=== PATIENT | male | born 1990 | race Caucasian/White ===

== ENCOUNTER 2018-08-09 21:51 | Emergency (ER) | payer BC, OTHER ==
[2018-08-09 21:57] VITALS: BP 116/76; PULSE 75; TEMP 98.3; BMI 26.5
[2018-08-09] MEDS ORDERED: SODIUM CHLORIDE 1,000 ML IV ONE ×2 (22:13→23:10)
[2018-08-09] MEDS ORDERED: ONDANSETRON 4 MG/2 ML VIAL IVPB ONE (22:13)
--- NOTE | 2018-08-09 22:14 | PDOC ---
History of Present Illness - General Chief Complaint: Pain, Acute Stated Complaint: NAUSEA/VOMITING/ABD PAIN Time Seen by Provider: 08/09/18 21:56 History Source: Patient Exam Limitations: No Limitations - History of Present Illness Initial Comments: 08/09/18 22:48 This is a 28-year-old male who comes in complaining of epigastric pain and multiple episodes of nausea and vomiting. Patient denies any fevers, chills, diarrhea. Patient said symptoms began about an hour and a half ago. Patient is otherwise healthy. Allergies: None Past Medical History: none Social history: Lives with family. No smoking. No alcohol. No illicit drugs. Surgical history: None General: No fevers or chills, no weakness, no weight loss HEENT: No change in vision. No sore throat,. No ear pain CardioVascular: no chest discomfort. No shortness of breath Respiratory:No cough, or wheezing. Gastrointestinal: + nausea, +vomiting, no diarrhea or constipation, No rectal bleeding Genitourinary: No dysuria, hematuria, or frequency Musculoskeletal: No joint or muscle pain or swelling Neurologic: No headache, vertigo, dizziness or loss of consciousness Psychiatric: nor depression Skin: No rashes or easy bruising Endocrine: no increased thirst or abnormal weight change Allergic: no skin or latex allergy All other systems reviewed and normal Exam: General: Well-nourished well-developed individual, no acute distress HEENT: Throat: Normal, tonsils normal, no erythema or exudate Neck: Supple, no meningeal signs, no lymphadenopathy Eyes::Pupils equal reactive and round, extraocular motion intact Chest: Nontender to palpation Cardiac: S1-S2 normal, regular rate and rhythm, no murmurs rubs or gallops Respiratory: Lungs clear to auscultation bilateral Abdomen: Soft, nondistended, normal bowel sounds, there is some mild tenderness on palpation in the epigastric area. Extremities: Warm, dry, no cyanosis, clubbing, or edema Skin: No rashes Neuro: Alert and oriented x3, CN II - XII intact, nonfocal exam with normal strength, normal sensation, normal reflexes, normal gait, Psych: Normal mood and affect Assessment and plan: This is a 28-year-old male who comes in complaining of nausea and vomiting multiple episodes over the last hour and a half. Patient also complaining of epigastric pain. Patient does not appear dehydrated at this point however given his amount of vomiting and nausea I will hydrated with IV fluids and give him some Zofran and reassess. 23:11 Reevaluation post 1 L fluid patient feels much better at this point however still does not feel the need to urinate so we'll continue IV hydration. Patient has no further vomiting in the ED Past History - Past Medical History Allergies/Adverse Reactions: Allergies Allergy/AdvReac Type Severity Reaction Status Date / Time No Known Allergies Allergy Unverified 08/09/18 21:53 Home Medications: Ambulatory Orders NK [No Known Home Medication] 08/09/18 COPD: No - Suicide/Smoking/Psychosocial Hx Smoking History: Never smoked *Physical Exam - Vital Signs Last Vital Signs Temp Pulse Resp BP Pulse Ox 98.3 F 75 16 116/76 100 08/09/18 21:53 08/09/18 21:53 08/09/18 21:53 08/09/18 21:53 08/09/18 21:53 Moderate Sedation - Procedure Monitoring Vital Signs: Procedure Monitoring Vital Signs Temperature 98.3 F 08/09/18 21:53 Pulse Rate 75 08/09/18 21:53 Respiratory Rate 16 08/09/18 21:53 Blood Pressure 116/76 08/09/18 21:53 O2 Sat by Pulse Oximetry (%) 100 08/09/18 21:53 *DC/Admit/Observation/Transfer Diagnosis at time of Disposition: Nausea and vomiting Qualifiers: Vomiting type: unspecified Vomiting Intractability: non-intractable Qualified Code(s): R11.2 - Nausea with vomiting, unspecified - Discharge Dispostion Disposition: HOME Condition at time of disposition: Stable Decision to Admit order: No - Referrals - Patient Instructions Additional Instructions: Clear liquids only for the next 6 hours.. If you vomit again U can take Zofran 1 tablet as often as every 6 hours if needed. I am sending a prescription to the pharmacy for Zofran After that if you have had no further vomiting you may have bananas, rice, applesauce, or toast. If no further vomiting for another 8 hours you may have regular food. If you vomit again then nothing to eat or drink for 2 hours. then start back with the clear liquids. Return to the emergency department immediately with ANY new, persistent or worsening symptoms. You MUST call and follow up with your doctor tomorrow if not better. Please make sure your doctor reviews the results of your emergency evaluation. - Post Discharge Activity
[2018-08-09] MEDS ORDERED: ONDANSETRON 4 MG/2 ML VIAL ONE (22:16)
[2018-08-09] MEDS ORDERED: HYOSCYAMINE SULFATE 0.125 MG *ODT ONE (22:23)
[2018-08-09] MEDS ORDERED: FAMOTIDINE 20 MG/50 ML IVPB 20 MG/50 ML MG IVPB ONE ×2 (22:23→22:33)
[2018-08-09] MEDS ORDERED: HYOSCYAMINE SULFATE 0.125 MG *ODT PO ONE (22:35)
[2018-08-10] MEDS ORDERED: ONDANSETRON 8 MG TABLET (FP) PO ONE (00:05)
[2018-08-10] MEDS ORDERED: ONDANSETRON 4 MG TABLET PO ONE (00:07)
== END 2018-08-10 00:09 | disposition home or self-care (01) ==
LOC: FER 21:51
PROC: 3E033GC Introduction of Other Therapeutic Substance into Peripheral Vein, Percutaneous Approach (ICD-10-PCS; principal; 2018-08-09)
PROC: 3E0337Z Introduction of Electrolytic and Water Balance Substance into Peripheral Vein, Percutaneous Approach (ICD-10-PCS; 2018-08-09)
DX: R11.2 Nausea with vomiting, unspecified (principal)
CPT/HCPCS: 99282-25; J7030